=== PATIENT | female | born 1980 ===

== ENCOUNTER 2019-06-15 06:40 | Inpatient (IN) ==
[2019-06-10 11:34] LABS: Basophils % 0.2 % (0.0-0.8); Eosinophils % 0.7 % (0.00-10.9); Hematocrit 37.6 VOL% (35.7-47.0); Hemoglobin 13.5 GM/DL (12.0-16.0); Immature Granulocytes % 0.4 %; Immature Granulocytes Absolute 0.02 #; Lymphocytes # 1.2 10*3/uL (1.4-4.0); Lymphocytes % 21.5 % (21.3-54.2); Mean Corpuscular HGB Conc 35.9 GM/DL (32-36); Mean Corpuscular Volume 94.5 FL (87-102); Monocytes % 7.9 % (1.7-12.7); Neutrophils % 69.3 % (38.7-73.9); Platelet Count 228 T/CUMM (130-400); Red Blood Count 3.98 MC/CUMM (3.8-5.5); Red Cell Distribution Width 11.8 % (9.3-17.3); White Blood Count 5.3 T/CUMM (4-12)
[2019-06-10 11:36] LABS: Apearance,Urine CLEAR (Clear); Bilirubin,Urine Negative (Negative); Blood, Urine Negative (Negative); Glucose,Urine (UA) >=500 mg/dL (Negative); Ketones,Urine Negative (Negative); Mucus,Urine Occasional /LPF (Occasional); Nitrite,Urine Negative (Negative); Protein,Urine Negative; RBC,Urine 1 /HPF (0-4); Squamous Epithelial Cell,Urine Occasional /HPF (0-10); Urine Color Yellow (Yellow); Urine Specific Gravity 1.035 (1.001-1.035)
[2019-06-10 11:56] LABS: Albumin 3.6 G/DL (3.4-5.0); Bilirubin,Total 0.7 MG/DL (0.2-1.0); Calcium 9.3 MG/DL (8.5-10.1); Osmolality,Calculated 281.7 MOS/KG (273-304); Risk Ratio 4.53; Total Protein 8.1 G/DL (6.4-8.3); VLDL CHOLESTEROL 47.8 MG/DL
[2019-06-10 12:57] LABS: HIV Antigen/Antibody Result Nonreactive (Nonreactive)
[~2019-06-15 06:40] MED LIST: CLINDAMYCIN INJ 50 ML IV ONE; CLINDAMYCIN INJ 900 MG in PREMIX 1 EACH IV ONE; DIAZEPAM 5 MG TABLET ONE; DIAZEPAM 5 MG TABLET PO ONE; FAMOTIDINE 20 MG TABLET ONE; FAMOTIDINE 20 MG TABLET PO ONE
[2019-06-15] MEDS ORDERED: INSULIN REGULAR 100 UNIT/ML IV ONE (07:07)
[2019-06-15] MEDS ORDERED: INSULIN REGULAR 100 UNIT/ML ONE ×2 (07:17→18:14)
[2019-06-15] MEDS ORDERED: LACTATED RINGERS 1,000 ML IV SCH ×2 (07:30→11:00)
[2019-06-15] MEDS ORDERED: SUGAMMADEX 200 MG/2 ML VIAL IV ONE (09:40)
[2019-06-15 09:46] LABS: Apearance,Urine Slightly Hazy (Clear); Bilirubin,Urine Negative (Negative); Blood, Urine Negative (Negative); Glucose,Urine (UA) >=500 mg/dL (Negative); Ketones,Urine 5 mg/dL (Negative); Mucus,Urine Occasional /LPF (Occasional); Nitrite,Urine Negative (Negative); Protein,Urine Negative; RBC,Urine 2 /HPF (0-4); Squamous Epithelial Cell,Urine Occasional /HPF (0-10); Urine Color Yellow (Yellow); Urine Specific Gravity 1.022 (1.001-1.035); Urine Urobilinogen < 2.0 EU/DL (0.2-1.0); WBC,Urine 1 /HPF (0-6)
[2019-06-15] MEDS ORDERED: PROPOFOL 200 MG/20 ML VIAL IV ONE (09:56)
[2019-06-15] MEDS ORDERED: FLUMAZENIL 0.5 MG/5 ML VIAL IV ONE (09:57)
[2019-06-15] MEDS ORDERED: GLYCOPYRROLATE 0.4 MG/2 ML VIAL ONE (09:57)
[2019-06-15] MEDS ORDERED: NEOSTIGMINE 10 MG/10 ML VIAL ONE (09:57)
[2019-06-15] MEDS ORDERED: LIDOCAINE 1% 5 ML VIAL ONE (09:57)
[2019-06-15] MEDS ORDERED: MIDAZOLAM 2 MG/2 ML VIAL ONE (09:57)
[2019-06-15] MEDS ORDERED: ROCURONIUM 100 MG/10 ML VIAL IV ONE (09:57)
[2019-06-15] MEDS ORDERED: LACTATED RINGERS 1,000 ML IV ONE (09:57)
[2019-06-15] MEDS ORDERED: fentaNYL 100 MCG/2 ML VIAL ONE (09:57)
[2019-06-15] MEDS ORDERED: ACETAMINOPHEN 1,000 MG/100 ML VIAL IV ONE (09:57)
[2019-06-15] MEDS ORDERED: ONDANSETRON 4 MG/2 ML VIAL ONE ×2 (09:57→10:04)
[2019-06-15] MEDS ORDERED: SEVOFLURANE 1 UNIT/15 MINUTE INH ONE (09:57)
[2019-06-15] MEDS ORDERED: ONDANSETRON 4 MG/2 ML VIAL IV PRN (10:00)
[2019-06-15] MEDS ORDERED: HYDROmorphone 2 MG/1 ML VIAL ONE (10:04)
[2019-06-15] MEDS: HYDROmorphone 2 MG/1 ML VIAL IV PRN ×4 (10:06→10:40)
[2019-06-15] MEDS ORDERED: GLUCAGON 1 MG VIAL IM PRN ×3 (10:32→18:05)
[2019-06-15] MEDS ORDERED: DEXTROSE 50% 25 GM/50 ML VIAL IV PRN ×3 (10:32→18:05)
[2019-06-15] MEDS ORDERED: BISACODYL 10 MG SUPP RECTAL PRN (10:32)
[2019-06-15] MEDS ORDERED: IBUPROFEN 800 MG TABLET PO PRN (10:32)
[2019-06-15] MEDS ORDERED: MAGNESIUM HYDROXIDE SUSP 30 ML UDCUP PO PRN (10:32)
[2019-06-15] MEDS ORDERED: DOCUSATE SODIUM 100 MG CAPSULE PO PRN (10:32)
[2019-06-15] MEDS ORDERED: ACETAMINOPHEN 325 MG TABLET PO PRN (10:32)
[2019-06-15] MEDS ORDERED: BENZOCAINE/MENTHOL LOZENGE 18/BOX PO PRN (10:32)
[2019-06-15] MEDS ORDERED: HYDROmorphone 2 MG/1 ML VIAL IV PRN ×2 (10:37→11:10)
[2019-06-15] MEDS: ONDANSETRON 4 MG/2 ML VIAL IV PRN ×2 (13:40→18:13)
[2019-06-15] MEDS ORDERED: ceFAZolin 1,000 MG in SYRINGE 1 EACH IV SCH (16:32)
[2019-06-15] MEDS: CLINDAMYCIN INJ 900 MG in PREMIX 1 EACH IV SCH (16:40)
[2019-06-15] MEDS: INSULIN REGULAR 100 UNIT/ML SUBCUT SCH (18:15)
[2019-06-15] MEDS ORDERED: KETOROLAC 30 MG/1 ML VIAL IV PRN (23:47)
[2019-06-16] MEDS: INSULIN REGULAR 100 UNIT/ML SUBCUT SCH ×5 (00:09→23:39)
[2019-06-16] MEDS: CLINDAMYCIN INJ 900 MG in PREMIX 1 EACH IV SCH (01:03)
[2019-06-16 06:30] LABS: Basophils % 0.3 % (0.0-0.8); Eosinophils % 0.4 % (0.00-10.9); Hematocrit 34.5 VOL% (35.7-47.0); Hemoglobin 12.1 GM/DL (12.0-16.0); Immature Granulocytes % 0.3 %; Immature Granulocytes Absolute 0.02 #; Lymphocytes # 1.7 10*3/uL (1.4-4.0); Lymphocytes % 20.9 % (21.3-54.2); Mean Corpuscular HGB Conc 35.1 GM/DL (32-36); Mean Platelet Volume 9.6 FL (9.6-12.0); Monocytes % 10.3 % (1.7-12.7); Neutrophils % 67.8 % (38.7-73.9); Platelet Count 179 T/CUMM (130-400); Red Blood Count 3.63 MC/CUMM (3.8-5.5); Red Cell Distribution Width 11.7 % (9.3-17.3); White Blood Count 7.9 T/CUMM (4-12)
[2019-06-16] MEDS ORDERED: OMEGA DHA EPA FISH OIL PO SCH (09:00)
[2019-06-16] MEDS: METOCLOPRAMIDE 10 MG TABLET PO SCH ×3 (09:49→23:39)
[2019-06-16] MEDS: LISINOPRIL 10 MG TABLET PO SCH (11:07)
[2019-06-16] MEDS: SIMVASTATIN 20 MG TABLET PO SCH (11:08)
[2019-06-17] MEDS: INSULIN REGULAR 100 UNIT/ML SUBCUT SCH (06:13)
[2019-06-17 07:36] VITALS: BP 130/77
[2019-06-17] MEDS: METOCLOPRAMIDE 10 MG TABLET PO SCH (10:59)
[2019-06-17] MEDS: LISINOPRIL 10 MG TABLET PO SCH (10:59)
[2019-06-17] MEDS: SIMVASTATIN 20 MG TABLET PO SCH (10:59)
== END 2019-06-17 10:50 | disposition home or self-care (01) | DRG 743 ==
LOC: N.SDSINP 06:40 → N.OR 06:40 → N.SDSINP 06:42 → N.OB 11:00
PROVIDERS: ADMIT Obstetrics & Gynecology; ATTEND Obstetrics & Gynecology